=== PATIENT | male | born 1990 | race Caucasian/White ===

== ENCOUNTER 2017-09-05 09:48 | Emergency (ER) | payer SELFPAY ==
--- NOTE | 2017-09-05 09:57 | EDM.PDOC ---
ED HPI GENERAL MEDICAL PROBLEM - General Chief Complaint: Respiratory Problem Stated Complaint: DIFFICULTY BREATHING Time Seen by Provider: 09/05/17 09:57 - History of Present Illness INITIAL COMMENTS - FREE TEXT/NARRATIVE: HISTORY AND PHYSICAL: History of present illness: Patient 26-year-old white male presents with a concern of chest pain this is vaguely described without associated palpitations nausea vomiting or diaphoresis patient also has a concern of hyperventilation he does have an appointment with his housing officer today but states it does not provoke any anxiety. Review of systems: As per history of present illness and below otherwise all systems reviewed and negative. Past medical history: As per history of present illness and as reviewed below otherwise noncontributory. Surgical history: As per history of present illness and as reviewed below otherwise noncontributory. Social history: No reported history of drug or alcohol abuse. Family history: As per history of present illness and as reviewed below otherwise noncontributory. Physical exam: HEENT: Atraumatic, normocephalic, pupils reactive, negative for conjunctival pallor or scleral icterus, mucous membranes moist, throat clear, neck supple, nontender, trachea midline. Lungs: Clear to auscultation, breath sounds equal bilaterally, chest nontender. Heart: S1S2, regular, negative for clicks, rubs, or JVD. Abdomen: Soft, nondistended, nontender. Negative for masses or hepatosplenomegaly. Negative for costovertebral tenderness. Pelvis: Stable nontender. Genitourinary: Deferred. Rectal: Deferred. Extremities: Atraumatic, negative for cords or calf pain. Neurovascular unremarkable. Neuro: Awake, alert, anxious, oriented. Cranial nerves II through XII unremarkable. Cerebellum unremarkable. Motor and sensory unremarkable throughout. Exam nonfocal. Diagnostics: Chest x-ray EKG Therapeutics: None Impression: #1 atypical chest pain #2 acute anxiety Definitive disposition and diagnosis as appropriate pending reevaluation and review of above. chest Pain Score (Numeric/FACES): 8 - Related Data Allergies Allergy/AdvReac Type Severity Reaction Status Date / Time No Known Allergies Allergy Verified 09/05/17 09:55 Home Meds: Home Meds . [No Known Home Meds] 09/05/17 [History] ED ROS GENERAL - Review of Systems Review Of Systems: ROS reveals no pertinent complaints other than HPI. ED EXAM, GENERAL - Physical Exam Exam: See Below (See dictation) Course - Vital Signs Last Recorded V/S: Last Vital Signs Temp 36.6 C 09/05/17 09:50 Pulse 89 09/05/17 09:50 Resp 30 H 09/05/17 09:50 BP 126/93 H 09/05/17 09:50 Pulse Ox 99 09/05/17 09:50 - Orders/Labs/Meds Orders: Active Orders 24 hr Category Date Time Status EKG Documentation Completion [RC] STAT Care 09/05/17 09:51 Active Chest 1V Frontal [CR] Stat Exams 09/05/17 09:56 Ordered Departure - Departure Time of Disposition: 09:57 Disposition: Home, Self-Care 01 Condition: Good Clinical Impression: Atypical chest pain, Anxiety - Discharge Information Forms: ED Department Discharge Additional Instructions: The following information is given to patients seen in the emergency department who are being discharged to home. This information is to outline your options for follow-up care. We provide all patients seen in our emergency department with a follow-up referral. The need for follow-up, as well as the timing and circumstances, are variable depending upon the specifics of your emergency department visit. If you don't have a primary care physician on staff, we will provide you with a referral. We always advise you to contact your personal physician following an emergency department visit to inform them of the circumstance of the visit and for follow-up with them and/or the need for any referrals to a consulting specialist. The emergency department will also refer you to a specialist when appropriate. This referral assures that you have the opportunity for followup care with a specialist. All of these measure are taken in an effort to provide you with optimal care, which includes your followup. Under all circumstances we always encourage you to contact your private physician who remains a resource for coordinating your care. When calling for followup care, please make the office aware that this follow-up is from your recent emergency room visit. If for any reason you are refused follow-up, please contact the [facility] emergency department at and asked to speak to the emergency department charge nurse. Follow-up primary medical doctor 1-2 days return as needed as discussed - My Orders Last 24 Hours: My Active Orders 09/05/17 09:51 EKG Documentation Completion [RC] STAT 09/05/17 09:56 Chest 1V Frontal [CR] Stat - Assessment/Plan Last 24 Hours: My Active Orders 09/05/17 09:51 EKG Documentation Completion [RC] STAT 09/05/17 09:56 Chest 1V Frontal [CR] Stat
--- NOTE | 2017-09-05 14:17 | CR ---
EXAM DATE: 09/05/17 PATIENT'S AGE: 26 Patient: RAYRAY DANG Facility: [place], [place] Site . Site : 1990 Study: XRay Chest [id number] 10:17:31 AM Ordering Physician: Doctor George Final Report: INDICATION: Chest pain and shortness of breath TECHNIQUE: Chest 1 view COMPARISON: None FINDINGS: CARDIOVASCULATURE AND MEDIASTINUM: Heart size and vasculature are normal in caliber and appearance. LUNGS AND PLEURAL SPACE: Lungs are clear. No sign of infiltrate or mass. No sign of pleural effusion. No pneumothorax. BONES AND SOFT TISSUES: No significant findings. IMPRESSION: No acute or significant findings. Dictated by Alejandro Gudino MD @ 09/05/2017 10:25:11 AM Dictated by: Alejandro Gudino MD @ 09/05/2017 10:25:13 (Electronic Signature) Report Signed by Proxy. [facility]ITALAditi
== END 2017-09-05 10:42 | disposition home or self-care (01) ==
LOC: MW.ED 09:48
DX: R07.89 Other chest pain (principal); F41.9 Anxiety disorder, unspecified
CPT/HCPCS: 71010; 71010-26; 93005; 99284; 99284-25